=== PATIENT | male | born 2000 | race Caucasian/White ===

== ENCOUNTER 2022-11-21 02:17 | Emergency (ER) | payer SELFPAY ==
[~2022-11-21] VITALS: Ht 182.9 cm; Wt 65.9 kg
[~2022-11-21 02:17] MED LIST: ACETAMINOPHEN-H1 TA2 PO; MORGIDOX 1X100100 MG PO; PAXIL20 M1 PO
[2022-11-21 03:19] VITALS: BP 126/78
== END 2022-11-21 03:19 | disposition home or self-care (01) ==
LOC: ED 02:17
DX: N50.812 Left testicular pain (principal); Z28.310 Unvaccinated for COVID-19

== ENCOUNTER 2023-02-19 10:57 | Emergency (ER) | payer SELFPAY ==
[2023-02-19 11:11] VITALS: BP 133/86
[2023-02-19] MEDS ORDERED: PREDNISONE20 M1 PO (11:51)
== END 2023-02-19 12:10 | disposition home or self-care (01) ==
LOC: ED 10:57
DX: M25.511 Pain in right shoulder (principal)
CPT/HCPCS: J7512

== ENCOUNTER 2023-05-10 19:21 | Emergency (ER) | payer OTHER ==
[~2023-05-10 19:21] MED LIST changes: +PREDNISONE20 M1 PO
[2023-05-10] MEDS ORDERED: Ketorolac 30 MG/ML VIAL IM ONE (20:30)
[2023-05-10] MEDS ORDERED: HYDROcodone/Acetaminophen 7.5-325 MG TAB PO ONE (20:30)
[2023-05-10 20:55] VITALS: BP 135/91
== END 2023-05-10 20:52 | disposition home or self-care (01) ==
LOC: ED 19:21
DX: M25.511 Pain in right shoulder (principal); F17.290 Nicotine dependence, other tobacco product, uncomplicated

== ENCOUNTER 2023-05-13 14:03 | Emergency (ER) | payer OTHER ==
[~2023-05-13] VITALS: Wt 65.9 kg
[2023-05-13 14:53] LABS: BASO # 0.01 K/mm3 (0.02-0.10); HEMATOCRIT 48.1 % (36.0-47.0); LYMPH# 0.78 K/mm3 (1.50-4.00); MEAN CELL VOLUME 83 fl (78-95); MEAN CORPUSCULAR HEMOGLOBIN 28 pg (26-32); MEAN CORPUSCULAR HGB CONC 33 g/dL (33-37); MEAN PLATELET VOLUME 11.1 fl (7.4-10.4); NEU # 3.71 K/mm3 (1.40-6.50); PLATELET COUNT 227 K/mm3 (130-400); RED BLOOD COUNT 5.81 M/mm3 (4.20-5.60); RED CELL DISTRIBUTION WIDTH 14.7 % (11.5-14.5); WHITE BLOOD COUNT 5.5 K/mm3 (4.8-10.8)
[2023-05-13] MEDS ORDERED: predniSONE 20 MG TAB PO ONE (15:00)
[2023-05-13] MEDS ORDERED: GABAPENTIN PO ONE (15:00)
[2023-05-13 15:03] LABS: ALBUMIN 4.4 g/dL (3.5-5.0)
[2023-05-13 15:04] LABS: CALCIUM 9.5 mg/dL (8.3-10.5)
[2023-05-13 15:05] LABS: TOTAL PROTEIN 7.3 g/dL (6.4-8.3)
[2023-05-13 15:07] LABS: TOTAL BILIRUBIN 0.4 mg/dL (0.2-1.2)
[2023-05-13] MEDS ORDERED: Ketorolac 30 MG/ML VIAL IM ONE (16:00)
[2023-05-13] MEDS ORDERED: PREDNISONE20 MG PO (16:50)
[2023-05-13] MEDS ORDERED: KETOROLAC10 MG PO (16:50)
[2023-05-13 17:06] VITALS: BP 107/60
== END 2023-05-13 17:22 | disposition home or self-care (01) ==
LOC: ED 14:03
PROVIDERS: Physician Assistant
DX: M79.18 Myalgia, other site (principal)
CPT/HCPCS: J1885; J7512

== ENCOUNTER 2023-08-08 11:29 | Emergency (ER) | payer OTHER ==
[~2023-08-08] VITALS: Ht 180.3 cm; Wt 62.3 kg
[~2023-08-08 11:29] MED LIST changes: +CEPHALEXIN500 M1 PO; +KETOROLAC10 MG PO; +PREDNISONE20 MG PO; +PRILOSEC OTC20 MG PO
[2023-08-08] MEDS ORDERED: Ketorolac 10 MG TAB PO ONE (12:30)
[2023-08-08] MEDS ORDERED: tiZANidine 4 MG TABLET PO ONE (12:30)
[2023-08-08 12:32] LABS: PH-URINE 5.5 (5.0 - 8.0); URINE APPEARANCE CLOUDY (CLEAR); URINE COLOR YELLOW (YELLOW); URINE PROTEIN(semi-quant) 1+ (NEGATIVE)
[2023-08-08 12:33] LABS: URINE BILIRUBIN 1+ (NEGATIVE); URINE BLOOD NEGATIVE (NEGATIVE); URINE GLUCOSE NEGATIVE (NEGATIVE); URINE KETONE 1+ (NEGATIVE); URINE LEUKOCYTE ESTERASE NEGATIVE (NEGATIVE); URINE NITRATE NEGATIVE (NEGATIVE)
[2023-08-08 12:34] LABS: URINE MUCUS PRESENT (NOT PRESENT)
[2023-08-08] MEDS ORDERED: Cephalexin 250 MG CAP PO ONE (13:00)
[2023-08-08 13:18] VITALS: BP 125/92
== END 2023-08-08 13:28 | disposition home or self-care (01) ==
LOC: ED 11:29
PROVIDERS: Family Medicine
DX: M25.512 Pain in left shoulder (principal); N39.0 Urinary tract infection, site not specified

== ENCOUNTER 2024-02-20 12:45 | Emergency (ER) | payer OTHER ==
[~2024-02-20] VITALS: Ht 180.3 cm; Wt 62.5 kg
[2024-02-20] MEDS ORDERED: NEURONTIN300 MG/CAP PO (13:01)
[2024-02-20] MEDS ORDERED: ELIQUIS5 MG PO (13:02)
[2024-02-20] MEDS ORDERED: TIZANIDINE HYDRO4 M1 PO (13:02)
[2024-02-20] MEDS ORDERED: Ketorolac 30 MG/ML VIAL IV ONE (13:15)
[2024-02-20] MEDS ORDERED: NS 1,000 ML IV ONE (13:15)
[2024-02-20] MEDS ORDERED: Iohexol 300 - 100 ML VIAL IV ONE (13:19)
[2024-02-20 13:46] LABS: BASO # 0.02 K/mm3 (0.02-0.10); HEMATOCRIT 38.9 % (42.0-52.0); HEMOGLOBIN 12.8 g/dL (13.5-18.0); LYMPH# 0.61 K/mm3 (1.50-4.00); MEAN CELL VOLUME 79 fl (78-100); MEAN CORPUSCULAR HEMOGLOBIN 26 pg (27-31); MEAN CORPUSCULAR HGB CONC 33 g/dL (33-37); MONO # 0.85 K/mm3 (0.20-0.80); NEU # 6.83 K/mm3 (1.40-6.50); PLATELET COUNT 244 K/mm3 (130-400); RED BLOOD COUNT 4.92 M/mm3 (4.20-5.60); RED CELL DISTRIBUTION WIDTH 13.8 % (11.5-14.5); WHITE BLOOD COUNT 8.3 K/mm3 (4.8-10.8)
[2024-02-20 13:49] LABS: ALBUMIN 4.2 g/dL (3.5-5.0); SODIUM 138 mmol/L (136-145)
[2024-02-20 13:50] LABS: CALCIUM 8.8 mg/dL (8.3-10.5)
[2024-02-20 13:51] LABS: GLUCOSE 93 mg/dL (75-110)
[2024-02-20 13:52] LABS: TOTAL PROTEIN 6.9 g/dL (6.4-8.3)
[2024-02-20 13:53] LABS: CARBON DIOXIDE 19 mmol/L (22-29); TOTAL BILIRUBIN 0.4 mg/dL (0.2-1.2)
[2024-02-20 13:57] LABS: AST-SGOT 42 U/L (5-34)
[2024-02-20 13:58] LABS: ALT/SGPT 36 U/L (0-55)
[2024-02-20 14:04] LABS: TROPONIN-I < 0.030 ng/mL (0.00-0.033)
[2024-02-20 14:22] LABS: URINE APPEARANCE SLIGHTLY CLOUDY (CLEAR); URINE BILIRUBIN 1+ (NEGATIVE); URINE COLOR DARK YELLOW (YELLOW); URINE GLUCOSE NEGATIVE (NEGATIVE); URINE KETONE TR (NEGATIVE); URINE PROTEIN(semi-quant) 1+ (NEGATIVE)
[2024-02-20 14:23] LABS: URINE BLOOD NEGATIVE (NEGATIVE); URINE LEUKOCYTE ESTERASE NEGATIVE (NEGATIVE); URINE NITRATE NEGATIVE (NEGATIVE); URINE WBC 0-1 /hpf (0-3)
[2024-02-20 15:15] VITALS: BP 120/56
== END 2024-02-20 15:28 | disposition home or self-care (01) ==
LOC: ED 12:45
PROVIDERS: Family Medicine
DX: R07.89 Other chest pain (principal); J10.1 Influenza due to other identified influenza virus with other respiratory manifestations; F15.90 Other stimulant use, unspecified, uncomplicated; F12.90 Cannabis use, unspecified, uncomplicated; Z79.01 Long term (current) use of anticoagulants
CPT/HCPCS: J1885; J7030; Q9967

== ENCOUNTER 2024-03-20 19:33 | Emergency (ER) | payer SELFPAY ==
[~2024-03-20] VITALS: Ht 180.3 cm; Wt 56.8 kg
[~2024-03-20 19:33] MED LIST changes: +ELIQUIS5 MG PO; +NEURONTIN300 MG/CAP PO; +TIZANIDINE HYDRO4 M1 PO
[2024-03-20 20:08] LABS: BASO # 0.02 K/mm3 (0.02-0.10); EOS # 0.09 K/mm3 (0.04-0.40); EOS % 1.1 % (0.0-4.0); HEMATOCRIT 43.5 % (42.0-52.0); HEMOGLOBIN 14.2 g/dL (13.5-18.0); MEAN CELL VOLUME 78 fl (78-100); MEAN CORPUSCULAR HEMOGLOBIN 25 pg (27-31); MEAN CORPUSCULAR HGB CONC 33 g/dL (33-37); MEAN PLATELET VOLUME 10.7 fl (7.4-10.4); MONO # 0.76 K/mm3 (0.20-0.80); NEU # 5.66 K/mm3 (1.40-6.50); PLATELET COUNT 293 K/mm3 (130-400); RED BLOOD COUNT 5.59 M/mm3 (4.20-5.60); RED CELL DISTRIBUTION WIDTH 14.6 % (11.5-14.5); WHITE BLOOD COUNT 8.2 K/mm3 (4.8-10.8)
[2024-03-20 20:13] LABS: ALBUMIN 4.6 g/dL (3.5-5.0)
[2024-03-20 20:15] LABS: CALCIUM 9.4 mg/dL (8.3-10.5)
[2024-03-20 20:18] LABS: PROTHROMBIN TIME 11.6 SECONDS (9.0-12.0); TOTAL BILIRUBIN 0.6 mg/dL (0.2-1.2)
[2024-03-20 20:41] VITALS: BP 122/81
== END 2024-03-20 20:41 | disposition home or self-care (01) ==
LOC: ED 19:33
PROVIDERS: Physician Assistant
DX: S09.90XA Unspecified injury of head, initial encounter (principal); S00.03XA Contusion of scalp, initial encounter; S00.83XA Contusion of other part of head, initial encounter; T43.215A Adverse effect of selective serotonin and norepinephrine reuptake inhibitors, initial encounter; Z86.718 Personal history of other venous thrombosis and embolism; Z79.01 Long term (current) use of anticoagulants; W18.30XA Fall on same level, unspecified, initial encounter; W22.8XXA Striking against or struck by other objects, initial encounter

== ENCOUNTER 2024-03-24 16:57 | Emergency (ER) | payer SELFPAY ==
[2024-03-24 17:10] VITALS: BP 137/84
[2024-03-24] MEDS ORDERED: ONDANSETRON HYDR4 MG PO (17:33)
[2024-03-24] MEDS ORDERED: DULOXETINE20 MG (17:34)
[2024-03-24] MEDS ORDERED: PROMETHAZINE12.5 M5 (17:34)
[2024-03-24] MEDS ORDERED: HYDROCODONE BIT10 MG (17:35)
[2024-03-24] MEDS ORDERED: Acetaminophen 500 MG TAB PO ONE (17:45)
[2024-03-24 17:59] LABS: BASO # 0.03 K/mm3 (0.02-0.10); EOS # 0.04 K/mm3 (0.04-0.40); EOS % 0.8 % (0.0-4.0); HEMATOCRIT 38.9 % (42.0-52.0); HEMOGLOBIN 12.7 g/dL (13.5-18.0); LYMPH# 1.04 K/mm3 (1.50-4.00); MEAN CELL VOLUME 78 fl (78-100); MEAN CORPUSCULAR HEMOGLOBIN 25 pg (27-31); MEAN CORPUSCULAR HGB CONC 33 g/dL (33-37); MONO # 0.46 K/mm3 (0.20-0.80); NEU # 3.74 K/mm3 (1.40-6.50); PLATELET COUNT 290 K/mm3 (130-400); RED BLOOD COUNT 5.02 M/mm3 (4.20-5.60); RED CELL DISTRIBUTION WIDTH 14.9 % (11.5-14.5); WHITE BLOOD COUNT 5.3 K/mm3 (4.8-10.8)
[2024-03-24 18:09] LABS: ALBUMIN 4.3 g/dL (3.5-5.0)
[2024-03-24 18:10] LABS: CALCIUM 9.6 mg/dL (8.3-10.5)
[2024-03-24 18:11] LABS: TOTAL PROTEIN 7.6 g/dL (6.4-8.3)
[2024-03-24 18:13] LABS: TOTAL BILIRUBIN 0.4 mg/dL (0.2-1.2)
== END 2024-03-24 18:10 | disposition left against medical advice (07) ==
LOC: ED 16:57
PROVIDERS: Physician Assistant
DX: M79.604 Pain in right leg (principal); Z79.01 Long term (current) use of anticoagulants

== ENCOUNTER 2024-04-19 05:13 | Emergency (ER) | payer OTHER ==
[~2024-04-19] VITALS: Ht 177.8 cm; Wt 56.8 kg
[~2024-04-19 05:13] MED LIST changes: +DULOXETINE20 MG; +HYDROCODONE BIT10 MG; +ONDANSETRON HYDR4 MG PO; +PROMETHAZINE12.5 M5
[2024-04-19 06:12] LABS: BASO # 0.03 K/mm3 (0.02-0.10); EOS # 0.19 K/mm3 (0.04-0.40); EOS % 3.3 % (0.0-4.0); HEMATOCRIT 38.5 % (42.0-52.0); HEMOGLOBIN 12.5 g/dL (13.5-18.0); LYMPH# 1.63 K/mm3 (1.50-4.00); MEAN CELL VOLUME 76 fl (78-100); MEAN CORPUSCULAR HEMOGLOBIN 25 pg (27-31); MEAN CORPUSCULAR HGB CONC 33 g/dL (33-37); MEAN PLATELET VOLUME 10.9 fl (7.4-10.4); MONO # 0.65 K/mm3 (0.20-0.80); NEU # 3.18 K/mm3 (1.40-6.50); PLATELET COUNT 283 K/mm3 (130-400); RED BLOOD COUNT 5.08 M/mm3 (4.20-5.60); RED CELL DISTRIBUTION WIDTH 15.7 % (11.5-14.5); WHITE BLOOD COUNT 5.7 K/mm3 (4.8-10.8)
[2024-04-19 06:22] LABS: SODIUM 141 mmol/L (136-145)
[2024-04-19 06:24] LABS: CALCIUM 9.3 mg/dL (8.3-10.5); GLUCOSE 92 mg/dL (75-110)
[2024-04-19 06:26] LABS: CARBON DIOXIDE 23 mmol/L (22-29)
[2024-04-19] MEDS ORDERED: Iohexol 300 - 100 ML VIAL IV ONE (08:01)
[2024-04-19] MEDS ORDERED: NS 100 ML IV SCH (08:04)
[2024-04-19] MEDS ORDERED: NS 1,000 ML IV SCH (09:00)
[2024-04-19] MEDS ORDERED: Ketorolac 30 MG/ML VIAL IV ONE (09:00)
[2024-04-19 09:12] LABS: PROTHROMBIN TIME 10.6 SECONDS (9.0-12.0)
[2024-04-19 09:39] VITALS: BP 110/56
== END 2024-04-19 09:30 | disposition home or self-care (01) ==
LOC: ED 05:13
PROVIDERS: Family Medicine; Nurse Practitioner
DX: R10.813 Right lower quadrant abdominal tenderness (principal); Z86.718 Personal history of other venous thrombosis and embolism
CPT/HCPCS: J1885; Q9967

== ENCOUNTER → 2024-04-28 | Outpatient (CLI) | payer OTHER ==
[2024-04-28 15:31] LABS: CALCIUM 9.8 mg/dL (8.3-10.5)
[2024-04-28 15:43] LABS: PROTHROMBIN TIME 10.4 SECONDS (9.0-12.0)
== END | disposition still patient (30) ==
LOC: LAB 13:51
PROVIDERS: Family Medicine
DX: K55.059 Acute (reversible) ischemia of intestine, part and extent unspecified (principal)

== ENCOUNTER 2024-05-02 00:07 | Emergency (ER) | payer OTHER ==
[~2024-05-02] VITALS: Ht 175.3 cm; Wt 72.4 kg
[2024-05-02 00:54] LABS: BASO # 0.04 K/mm3 (0.02-0.10); EOS # 0.07 K/mm3 (0.04-0.40); EOS % 0.9 % (0.0-4.0); HEMATOCRIT 40.9 % (42.0-52.0); HEMOGLOBIN 13.1 g/dL (13.5-18.0); MEAN CELL VOLUME 74 fl (78-100); MEAN CORPUSCULAR HEMOGLOBIN 24 pg (27-31); MEAN CORPUSCULAR HGB CONC 32 g/dL (33-37); MEAN PLATELET VOLUME 11.1 fl (7.4-10.4); NEU # 4.13 K/mm3 (1.40-6.50); PLATELET COUNT 339 K/mm3 (130-400); RED CELL DISTRIBUTION WIDTH 15.7 % (11.5-14.5); WHITE BLOOD COUNT 7.5 K/mm3 (4.8-10.8)
[2024-05-02 01:13] LABS: ALBUMIN 4.4 g/dL (3.5-5.0)
[2024-05-02 01:15] LABS: CALCIUM 9.4 mg/dL (8.3-10.5); PROTHROMBIN TIME 11.2 SECONDS (9.0-12.0)
[2024-05-02 01:16] LABS: TOTAL PROTEIN 7.5 g/dL (6.4-8.3)
[2024-05-02 01:18] LABS: TOTAL BILIRUBIN 0.3 mg/dL (0.2-1.2)
[2024-05-02 01:30] VITALS: BP 124/88
[2024-05-02] MEDS ORDERED: Acetaminophen 500 MG TAB PO ONE (01:30)
== END 2024-05-02 01:38 | disposition home or self-care (01) ==
LOC: ED 00:07
PROVIDERS: Family Medicine
DX: R07.89 Other chest pain (principal); D64.9 Anemia, unspecified; Z79.01 Long term (current) use of anticoagulants

== ENCOUNTER 2024-05-09 18:12 | Emergency (ER) | payer OTHER ==
[2024-05-09 18:34] LABS: BASO # 0.01 K/mm3 (0.02-0.10); EOS % 1.7 % (0.0-4.0); HEMATOCRIT 44.4 % (42.0-52.0); HEMOGLOBIN 14.1 g/dL (13.5-18.0); MEAN CELL VOLUME 76 fl (78-100); MEAN CORPUSCULAR HEMOGLOBIN 24 pg (27-31); MEAN CORPUSCULAR HGB CONC 32 g/dL (33-37); MEAN PLATELET VOLUME 10.9 fl (7.4-10.4); MONO # 0.49 K/mm3 (0.20-0.80); NEU # 3.64 K/mm3 (1.40-6.50); PLATELET COUNT 352 K/mm3 (130-400); RED BLOOD COUNT 5.85 M/mm3 (4.20-5.60); RED CELL DISTRIBUTION WIDTH 16.4 % (11.5-14.5)
[2024-05-09 18:42] LABS: ALBUMIN 4.7 g/dL (3.5-5.0)
[2024-05-09 18:43] LABS: CALCIUM 9.8 mg/dL (8.3-10.5)
[2024-05-09 18:44] LABS: TOTAL PROTEIN 8.1 g/dL (6.4-8.3)
[2024-05-09 18:46] LABS: TOTAL BILIRUBIN 0.4 mg/dL (0.2-1.2)
== END 2024-05-09 18:42 ==
LOC: ED 18:12
PROVIDERS: Family Medicine
DX: R10.9 Unspecified abdominal pain (principal); R51.9 Headache, unspecified; Z79.01 Long term (current) use of anticoagulants

== ENCOUNTER 2024-05-24 18:25 | Emergency (ER) | payer SELFPAY ==
[~2024-05-24] VITALS: Ht 172.7 cm; Wt 54.7 kg
[2024-05-24] MEDS ORDERED: PRILOSEC 20MG20 MG PO (18:35)
[2024-05-24] MEDS ORDERED: SUCRALFATE1 G1 PO (18:35)
[2024-05-24 19:13] LABS: BASO # 0.02 K/mm3 (0.02-0.10); EOS # 0.02 K/mm3 (0.04-0.40); EOS % 0.2 % (0.0-4.0); HEMATOCRIT 42.2 % (42.0-52.0); HEMOGLOBIN 13.6 g/dL (13.5-18.0); LYMPH# 1.12 K/mm3 (1.50-4.00); MEAN CELL VOLUME 74 fl (78-100); MEAN CORPUSCULAR HEMOGLOBIN 24 pg (27-31); MEAN CORPUSCULAR HGB CONC 32 g/dL (33-37); MEAN PLATELET VOLUME 10.3 fl (7.4-10.4); MONO # 0.74 K/mm3 (0.20-0.80); NEU # 7.63 K/mm3 (1.40-6.50); PLATELET COUNT 311 K/mm3 (130-400); RED BLOOD COUNT 5.71 M/mm3 (4.20-5.60); RED CELL DISTRIBUTION WIDTH 16.7 % (11.5-14.5); WHITE BLOOD COUNT 9.6 K/mm3 (4.8-10.8)
[2024-05-24 19:18] LABS: ALBUMIN 4.5 g/dL (3.5-5.0)
[2024-05-24 19:19] LABS: CALCIUM 9.2 mg/dL (8.3-10.5)
[2024-05-24 19:20] LABS: TOTAL PROTEIN 7.5 g/dL (6.4-8.3)
[2024-05-24 19:22] LABS: TOTAL BILIRUBIN 0.5 mg/dL (0.2-1.2)
[2024-05-24 19:28] LABS: PROTHROMBIN TIME 11.5 SECONDS (9.0-12.0)
[2024-05-24 19:35] LABS: PH-URINE 7.5 (5.0 - 8.0); URINE APPEARANCE CLEAR (CLEAR); URINE COLOR YELLOW (YELLOW); URINE GLUCOSE NEGATIVE (NEGATIVE); URINE PROTEIN(semi-quant) NEGATIVE (NEGATIVE)
[2024-05-24 19:36] LABS: URINE BILIRUBIN NEGATIVE (NEGATIVE); URINE BLOOD NEGATIVE (NEGATIVE); URINE KETONE NEGATIVE (NEGATIVE); URINE LEUKOCYTE ESTERASE NEGATIVE (NEGATIVE); URINE NITRATE NEGATIVE (NEGATIVE)
[2024-05-24 19:39] LABS: URINE WBC 0-1 /hpf (0-3)
[2024-05-24] MEDS ORDERED: Famotidine 20 MG/2 ML VIAL IV ONE (19:45)
[2024-05-24] MEDS ORDERED: Ketorolac 30 MG/ML VIAL IV ONE (19:45)
[2024-05-24 21:00] VITALS: BP 121/84
[2024-05-24] MEDS ORDERED: oxyCODONE/Acetaminophen 5-325 MG TAB PO ONE (21:00)
[2024-05-24] MEDS ORDERED: Acetaminophen 325 MG TAB PO ONE (21:00)
== END 2024-05-24 21:08 | disposition home or self-care (01) ==
LOC: ED 18:25
PROVIDERS: Family Medicine
DX: R10.9 Unspecified abdominal pain (principal); Z86.718 Personal history of other venous thrombosis and embolism
CPT/HCPCS: J1885; J3490